=== PATIENT | female | born 1945 | race Caucasian/White ===

== ENCOUNTER 2020-02-14 10:51 | Day surgery (SDC) | payer MEDICARE, OTHER ==
[2020-02-09 13:33] LABS: HEMATOCRIT 32.8 % (36.0-47.0); HEMOGLOBIN 11.1 g/dL (12.0-15.5); MEAN CORPUSCULAR HEMOGLOBIN 32.3 pg (27.0-33.4); MEAN CORPUSCULAR HGB CONC 33.9 g/dL (32.0-36.0); MEAN CORPUSCULAR VOLUME 95 fl (80-97); PLATELET COUNT 226 10^3/uL (150-450); RED BLOOD COUNT 3.44 10^6/uL (3.72-5.28); WHITE BLOOD COUNT 5.9 10^3/uL (4.0-10.5)
[2020-02-09 13:39] LABS: APPEARANCE,URINE CLEAR; BILIRUBIN,URINE NEGATIVE (NEGATIVE); COLOR,URINE STRAW; GLUCOSE, URINE NEGATIVE (NEGATIVE); KETONES,URINE NEGATIVE (NEGATIVE); LEUKOCYTE ESTERASE,URINE NEGATIVE (NEGATIVE); NITRITE,URINE NEGATIVE (NEGATIVE); PROTEIN,URINE NEGATIVE (NEGATIVE); URINE SPECIFIC GRAVITY 1.006; UROBILINOGEN,URINE NEGATIVE mg/dL (<2.0)
--- NOTE | 2020-02-09 13:45 | EKG REPORT ---
SEVERITY:- ABNORMAL ECG - SINUS RHYTHM WITH APCS VENTRICULAR PREMATURE COMPLEX : Confirmed by: Estela Heck 09-Feb-2020 13:43:44
[2020-02-09 14:03] LABS: ANION GAP 7 (5-19); BLOOD UREA NITROGEN 39 mg/dL (7-20); CALCIUM 10.3 mg/dL (8.4-10.2); CARBON DIOXIDE 25 mmol/L (22-30); CHLORIDE 107 mmol/L (98-107); GLUCOSE 86 mg/dL (75-110); POTASSIUM 5.1 mmol/L (3.6-5.0)
[2020-02-09 14:06] LABS: ALCOHOL < 10 mg/dL (NONE DETECTED)
[2020-02-09 14:07] LABS: URINE AMPHETAMINES SCREEN NEGATIVE; URINE BARBITURATES SCREEN NEGATIVE; URINE BENZODIAZEPINES SCREEN NEGATIVE; URINE COCAINE SCREEN NEGATIVE; URINE MARIJUANA (THC) SCREEN NEGATIVE; URINE METHADONE SCREEN NEGATIVE; URINE PHENCYCLIDINE SCREEN NEGATIVE
--- NOTE | 2020-02-09 16:42 | RADIOLOGY REPORT (SQ) ---
EXAM DESCRIPTION: CHEST 2 VIEWS IMAGES COMPLETED DATE/TIME: 02/09/2020 2:33 pm REASON FOR STUDY: PRE OP TESTING COMPARISON: None. EXAM PARAMETERS: NUMBER OF VIEWS: Two views. TECHNIQUE: PA and lateral views of the chest were obtained. RADIATION DOSE: NA LIMITATIONS: None. FINDINGS: LUNGS AND PLEURA: No consolidation, pleural effusion or pneumothorax. MEDIASTINUM AND HILAR STRUCTURES: No mediastinal or hilar contour abnormality. HEART AND VASCULAR STRUCTURES: The cardiac silhouette and pulmonary vasculature are within normal drake its. BONES: No acute findings. HARDWARE: Cholecystectomy clips. OTHER: No other finding. IMPRESSION: No acute cardiopulmonary process. TECHNICAL DOCUMENTATION: JOB ID: [id number] 2010 [employer]- All Rights Reserved Reading location - IP/workstation name: [email or web address]
[~2020-02-14 10:51] MED LIST: CEFAZOLIN 2 GM/D5W RTU 2 GM/50 ML RTUPB IV PRN; LACTATED RINGERS 1000 ML IV PRN
[2020-02-14] MEDS ORDERED: CEFAZOLIN 2 GM/D5W RTU 2 GM/50 ML RTUPB IV ONE (11:06)
[2020-02-14] MEDS ORDERED: THROMBIN (BOVINE) 5000 UNIT EPITAXIS KIT ONE (13:04)
[2020-02-14] MEDS ORDERED: HEPARIN SOD (PORCINE) 1,000 UNIT/ML 10 ML VIAL ONE (13:04)
[2020-02-14] MEDS ORDERED: BUPIVACAINE HCL 0.5 % INJ/PF 30 ML SDV ONE (13:04)
[2020-02-14] MEDS ORDERED: BUPIVACAINE INJ/PF LIPOSOME/PF 266 MG/20 ML SDV ONE (13:04)
[2020-02-14] MEDS ORDERED: BACITRACIN INJ 50,000 UNIT VIAL ONE (13:04)
[2020-02-14] MEDS ORDERED: FENTANYL CITRATE INJ/PF 250 MCG/5 ML AMPULE ONE (13:10)
[2020-02-14] MEDS ORDERED: MIDAZOLAM 2 MG/2 ML INJ ONE (13:11)
[2020-02-14] MEDS ORDERED: ONDANSETRON HCL INJ/PF 4 MG/2 ML SDV ONE (13:11)
[2020-02-14] MEDS ORDERED: PROPOFOL INJ 200 MG/20 ML VIAL IV ONE (13:11)
[2020-02-14] MEDS ORDERED: MORPHINE SULFATE 10 MG/ML INJ ONE (13:11)
[2020-02-14] MEDS ORDERED: DEXAMETHASONE SOD PHOSPHATE INJ 4 MG/1 ML VIAL ONE (13:11)
[2020-02-14] MEDS ORDERED: PROMETHAZINE HCL INJ 25 MG/1 ML VIAL IV PRN ×2 (14:12)
[2020-02-14] MEDS ORDERED: DIPHENHYDRAMINE HCL 50 MG/ML VIAL IV PRN (14:12)
[2020-02-14] MEDS ORDERED: MORPHINE SULFATE 10 MG/ML INJ IV PRN ×2 (14:12→15:48)
[2020-02-14] MEDS ORDERED: MEPERIDINE HCL/PF INJ 25 MG/1 ML DISP.SYRIN IV PRN (14:12)
[2020-02-14] MEDS ORDERED: FENTANYL CITRATE INJ/PF 100 MCG/2 ML AMPUL IV PRN ×3 (14:12)
[2020-02-14] MEDS ORDERED: SUCCINYLCHOLINE CHLORIDE INJ 200 MG/10 ML VIAL ONE (15:05)
[2020-02-14] MEDS ORDERED: VANCOMYCIN HCL INJ 1000 MG VIAL ONE (15:15)
--- NOTE | 2020-02-14 15:38 | Operative Report ---
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 Ststus post L4-5 central decompression and bilateral foraminotomies OPERATION: L4-5 central decompression and bilateral foraminotomies SURGEON: ALFREDITO PALACIOS INSECTICIDE MIXER: ORLANDO ORELLANA ANESTHESIA: GA COMPLICATIONS: None ESTIMATED BLOOD LOSS: 125 cc PROCEDURE: The patient is brought into the room. The patient is placed under anesthesia. The patient received [2 g of Ancef] within 1 hour of cut time. The patient is placed in the prone position on the Loki table with a Yadiel frame attachment. The Yadiel frame was turned up to open up the interspaces posteriorly. Under lateral C-arm fluoroscopy the [L4-5] level is identified. After marking the midline. After completion of prepping and draping, a midline incision is carried out measuring approximately an inch. Electrocautery was used to maintain hemostasis and dissection was carried down onto the lumbodorsal fascia which is incised on both sides of the spinous processes at [L4-5]. A Stirum is used to adrianna the posterior interspace and lateral C arm fluoroscopy is used to verify the appropriate level. The spinous process of [L4] is resected. Microscope a partial laminectomy of [L4] is carried out. The Kerrisons and curettes and rongeurs are used to carry out central decompression and lateral recess decompression bilaterally and foraminotomies. The ligamentum flavum is also resected extending to the lateral recess. Under the microscope the dura was retracted medially by Markell Orellana physician assistant track coach. And and annulotomy was performed and many small and large degenerative piece of disc resected. The lateral recesses decompressed completely and the nerve root is found to be exiting freely. After that a Valsalva maneuver is performed by anesthesia noting no cerebrospinal fluid leakage or epidural bleeding. The wound is irrigated with a liter of bacitracin irrigation. The fascia was reapproximated with 0 Vicryl and 2 g of vancomycin powder is placed above the fascia And the skin in the subareolar tissue is closed with 2-0 Vicryl in the subcu running 3-0 Monocryl. The skin is dressed with benzoin and Steri-Strips and 4 x 4 gauze and tape. The Yadiel frame was turned down and the patient is brought to the supine position and extubated and brought to the recovery room. Please note this procedure could not of been done without the assistance of Markell Orellana physician assistant track coach working under the microscope and carrying out the discectomy and decompression.
[2020-02-14] MEDS ORDERED: RINGERS SOLUTION,LACTATED 1,000 ML IV PRN (15:44)
[2020-02-14] MEDS ORDERED: ACETAMINOPHEN SOLN 325 MG/10.15 ML UDCUP PO PRN ×3 (15:48→19:00)
[2020-02-14] MEDS ORDERED: DIPHENHYDRAMINE HCL 25 MG CAPSULE PO PRN (15:49)
[2020-02-14] MEDS ORDERED: MAGNESIUM HYDROXIDE SUSP 30 ML UDCUP PO PRN (15:49)
[2020-02-14] MEDS ORDERED: ONDANSETRON HCL INJ/PF 4 MG/2 ML SDV IV PRN (15:49)
[2020-02-14] MEDS ORDERED: MAG HYDROX/AL HYDROX/SIMETH SUSP 30 ML UDCUP PO PRN (15:49)
[2020-02-14] MEDS ORDERED: ACETAMINOPHEN 650 MG SUPP.RECT PR PRN (15:49)
[2020-02-14] MEDS ORDERED: DIAZEPAM 5 MG TABLET PO PRN (15:49)
[2020-02-14] MEDS ORDERED: PROMETHAZINE HCL 25 MG TABLET PO PRN (15:49)
[2020-02-14] MEDS ORDERED: METHOCARBAMOL INJ/PF 1000 MG/10 ML SDV ONE (16:17)
[2020-02-14] MEDS ORDERED: METHOCARBAMOL INJ/PF 1000 MG/10 ML SDV IV PRN (16:22)
--- NOTE | 2020-02-14 17:02 | RADIOLOGY REPORT (SQ) ---
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 FLUOROSCOPY TIME: 0.2 minutes. 3 images submitted to PACS. TECHNIQUE: Intra-operative images of the lumbar spine were obtained. NUMBER OF IMAGES: 3 LIMITATIONS: None. FINDINGS: Refer to the separate operative report. IMPRESSION: IMAGE(S) OBTAINED DURING PROCEDURE. COMMENT: Quality ID [id number]: Final reports for procedures using fluoroscopy that document radiation exp osure indices, or exposure time and number of fluorographic images (if radiation exposure indices are not available) Please consult full operative report of the attending physician for description of the procedure. TECHNICAL DOCUMENTATION: JOB ID: [id number] 2010 [employer]- All Rights Reserved Reading location - IP/workstation name: [email or web address]
--- NOTE | 2020-02-14 17:02 | RADIOLOGY REPORT (SQ) ---
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 FLUOROSCOPY TIME: 0.2 minutes. 3 images submitted to PACS. TECHNIQUE: Intra-operative images of the lumbar spine were obtained. NUMBER OF IMAGES: 3 LIMITATIONS: None. FINDINGS: Refer to the separate operative report. IMPRESSION: IMAGE(S) OBTAINED DURING PROCEDURE. COMMENT: Quality ID [id number]: Final reports for procedures using fluoroscopy that document radiation exp osure indices, or exposure time and number of fluorographic images (if radiation exposure indices are not available) Please consult full operative report of the attending physician for description of the procedure. TECHNICAL DOCUMENTATION: JOB ID: [id number] 2010 [employer]- All Rights Reserved Reading location - IP/workstation name: [email or web address]
[2020-02-14] MEDS ORDERED: METHOTREXATE SODIUM 15 MG PO SCH (17:27)
[2020-02-14] MEDS ORDERED: MECLIZINE HCL 12.5 MG TABLET PO PRN (17:27)
[2020-02-14] MEDS: METHOCARBAMOL 750 MG TABLET PO PRN (18:20)
[2020-02-14] MEDS: OXYCODONE HCL IR 5 MG TABLET PO PRN (18:22)
[2020-02-14] MEDS: SENNOSIDES/DOCUSATE 8.6-50 MG 1 EACH TABLET PO SCH (18:49)
[2020-02-14] MEDS ORDERED: CEFAZOLIN 2 GM/D5W RTU 2 GM/50 ML RTUPB IV SCH (22:00)
[2020-02-14] MEDS: CEFAZOLIN SODIUM 2 GM in DEXTROSE 5%-WATER 100 ML IV SCH (22:09)
[2020-02-15] MEDS: OXYCODONE HCL IR 5 MG TABLET PO PRN (06:07)
[2020-02-15] MEDS: CEFAZOLIN SODIUM 2 GM in DEXTROSE 5%-WATER 100 ML IV SCH (06:08)
[2020-02-15] MEDS: METHOCARBAMOL 750 MG TABLET PO PRN (07:59)
--- NOTE | 2020-02-15 08:11 | Discharge Summary ---
Discharge Summary (SDC) - Discharge Final Diagnosis: Status post central decompression L4-L5 Date of Surgery: 02/14/20 Condition: Good Treatment or Instructions: Your Recovery and Discharge If general anesthesia is given or if you are taking narcotics for pain, it may cause you to feel different for 2 or 3 days. You may have trouble remembering and feel tired. You should not drive, drink alcohol, or make any big decisions for at least 2 days. Diet: When you wake up from the anesthesia, you will be able to drink small amounts of liquid. If you do not feel sick, you can begin eating regular foods. Continue to drink about 8 to 10 glasses of water each day. Eat a high-fiber diet so you dont strain while having a bowel movement. Activity: Slowly increase your activity. Be sure to get up and walk every few hours or so to prevent blood clot formation. Do not lift heavy items greater than 10 pounds or participate in strenuous activity for at least 4 weeks. Convalescent leave for 21 days starting today followed by light duty for 21 days. A light duty chit will be given to you at your follow up appointment. Wound Care: Always wash your hands before and after touching near your incision site. Do not soak in a bathtub, go swimming or submerge in water for at least 2 weeks. You may take a shower after the second postoperative day. A small amount of drainage from the incision is normal. If the dressing is soaked with blood, call [facility] for surgery. A small amount of drainage from the incision is normal. If the dressing is soaked with blood, call your surgeon. If you have Steri-strips in place, they will fall off in 7 to 10 days. If you have a glue-like covering over the incision, allow the glue to flake off on its own. If you have a dressing covering your incision, you may remove your dressing after two days and leave it open to the air. If you have packing inside your wound. Remove the packing in 24 hours and change the dressing as instructed by your surgeon daily. Avoid wearing tight or rough clothing. It may rub against your incisions and make it harder for them to heal. Protect the new skin, especially from the sun. The sun can burn and cause darker scarring. Your scar will heal in about 4 to 6 weeks and will become softer and continue to fade over the next year. Bowel Movements: Avoid straining with bowel movements by increasing the fiber in your diet with high- fiber foods or ehht-nis-qotbbrl medicines (like Metamucil and Fibercon). Be sure you are drinking 8 to 10 glasses of water each day. Be sure to also take the Colace as prescribed to prevent constipation from taking narcotics. Pain: The amount of pain is different for each person. The new medicine you will need after your operation is for pain control. Take Motrin for mild pain and Percocet for moderate to severe pain as needed. You can use throat lozenges if you have sore throat pain from the tube placed in your throat during your anesthesia. Contact your surgeon if you have: Pain that will not go away Pain that gets worse A fever of more than 101F (38.3C) Repeated vomiting Swelling, redness, bleeding, or foul- smelling drainage from your wound site Strong or continuous abdominal pain or swelling of your abdomen No bowel movement by 3 days after the operation Follow up appointments: Referrals: MARIA DE JESUS OSEGUERA MD [Primary Care Provider] - ALFREDITO JIANG MD [ASSOCIATE] - Respiratory Treatments at Home: Incentive Spirometer Discharge Activity: No Lifting Over 10 Pounds, No Lifting/Push/Pulling, Slowly Increase Activity Home Care Assistance: None Needed Report the Following to Your Physician Immediately: Increase in Pain, Fever over 101 Degrees, Unusual Bleeding, Drainage-Yellow, Drainage-Cabrera, Drainage-Green, Drainage-Foul Smelling
--- NOTE | 2020-02-15 08:16 | PDOC PROGRESS REPORT ---
Subjective Date:: 02/15/20 Subjective:: Patient is sitting in bed at time of the exam eating breakfast. She reports no back pain continues to have some mild right leg pain. She reports she is eating well drinking well and no issues with bowel or bladder function Reason For Visit: M54.5;LOW BACK PAIN, M54.16, M51.36 Physical Exam Vital Signs: Temp Pulse Resp BP Pulse Ox 98.6 F 81 18 156/53 H 96 02/15/20 05:54 02/15/20 05:54 02/15/20 05:54 02/15/20 05:54 02/15/20 05:54 Intake & Output 02/14/20 02/15/20 02/16/20 06:59 06:59 06:59 Intake Total 1350 Output Total 125 Balance 1225 Weight 92.99 kg General appearance: PRESENT: no acute distress, cooperative Eye exam: PRESENT: EOMI, PERRLA Ear exam: PRESENT: normal external ear exam. ABSENT: bleeding, drainage Mouth exam: PRESENT: moist Respiratory exam: ABSENT: accessory muscle use, prolonged expiratory phas GI/Abdominal exam: PRESENT: mass, soft. ABSENT: organolmegaly, rebound, tenderness Rectal exam: PRESENT: deferred Extremities exam: PRESENT: full ROM. ABSENT: calf tenderness, joint swelling, pedal edema Musculoskeletal exam: PRESENT: ambulatory Additional comments: Lumbar spine: Dressing is clean dry and intact no signs of drainage noted, appropriate postoperative swelling and tenderness is appreciated. Psychiatric exam: PRESENT: appropriate affect, normal mood. ABSENT: homicidal ideation, suicidal ideation Results Laboratory Results: 02/09/20 12:38 02/09/20 12:38 Impressions: Chest X-Ray 02/09/20 00:00 IMPRESSION: No acute cardiopulmonary process. Fluoroscopy 02/14/20 00:00 IMPRESSION: IMAGE(S) OBTAINED DURING PROCEDURE. Spine X-Ray 02/14/20 00:00 IMPRESSION: IMAGE(S) OBTAINED DURING PROCEDURE. Assessment & Plan - Time Time Spent with patient: Less than 15 minutes - Plan Summary Plan Summary: Status post central decompression L4-L5: Patient be discharged home today following clearance of physical therapy Up in orthopedic clinic 7 to 10 days Prescriptions were sent to her pharmacy
[2020-02-15] MEDS: SENNOSIDES/DOCUSATE 8.6-50 MG 1 EACH TABLET PO SCH (09:27)
[2020-02-15 09:38] VITALS: BP 136/44
[2020-02-15] MEDS ORDERED: ATORVASTATIN CALCIUM 20 MG TABLET PO SCH (10:00)
[2020-02-15] MEDS ORDERED: TRAZODONE HCL 50 MG TABLET PO SCH (10:00)
[2020-02-15] MEDS ORDERED: POLYETHYLENE GLYCOL 3350 POWDER 17 GM/1 PACKET PO SCH (10:00)
[2020-02-15] MEDS ORDERED: LOSARTAN POTASSIUM 25 MG TABLET PO SCH (10:00)
[2020-02-15] MEDS ORDERED: (PENDING PHARMACY ID) (Mirabegron [Myrbetriq] 50 MG Tab.Er.24h) PO SCH (10:00)
[2020-02-15] MEDS ORDERED: FOLIC ACID 1 MG TABLET PO SCH (10:00)
[2020-02-15] MEDS ORDERED: ALBUTEROL SULFATE HFA (90 MCG/PUFF) 8 GM MDI (1 MDI/ER DISP) IH SCH (10:00)
[2020-02-16] MEDS ORDERED: BISACODYL 10 MG SUPP.RECT PR PRN (05:00)
[2020-02-16] MEDS ORDERED: BISACODYL 5 MG TABEC PO PRN (05:00)
== END 2020-02-15 10:29 | disposition home or self-care (01) ==
LOC: OROUT 10:51 → 4S 17:09 → OROUT 02-15 10:29
PROVIDERS: ATTEND Orthopaedic Surgery
DX: M48.062 Spinal stenosis, lumbar region with neurogenic claudication (principal); M54.16 Radiculopathy, lumbar region; M51.36 Other intervertebral disc degeneration, lumbar region; M48.08 Spinal stenosis, sacral and sacrococcygeal region; M53.3 Sacrococcygeal disorders, not elsewhere classified; M79.604 Pain in right leg; E78.5 Hyperlipidemia, unspecified; I10 Essential (primary) hypertension; J44.9 Chronic obstructive pulmonary disease, unspecified; M06.9 Rheumatoid arthritis, unspecified; N32.81 Overactive bladder; H40.9 Unspecified glaucoma; E66.9 Obesity, unspecified; Z20.828 Contact with and (suspected) exposure to other viral communicable diseases; Z79.899 Other long term (current) drug therapy; Z96.659 Presence of unspecified artificial knee joint
CPT/HCPCS: 93005; 36415; 80307 ×2; 85027; 80048; 81001; 87070; 71046; 72020; 93010; 94760; 97116; 97161; 00630; 63047; C1776; U0003; A9270 ×9; J2250; J3490 ×2; J0690 ×3; J1100; J3010; J1644; J2800; J0330; J2405; J7060 ×2; J7120; J2704; J3370; C9290; C9803; 87635; J2270